=== PATIENT | female | born 1945 | race Two or more races ===

== ENCOUNTER 2019-02-21 12:15 | Outpatient (CLI) | payer MEDICARE | END 2019-02-21 23:59 | disposition home or self-care (01) | LOC: WOU 12:15 | PROVIDERS: ATTEND Podiatrist Foot & Ankle Surgery | DX: L91.0 Hypertrophic scar (principal); C90.01 Multiple myeloma in remission; D69.2 Other nonthrombocytopenic purpura | CPT/HCPCS: G0463 ==

== ENCOUNTER 2020-01-17 04:25 | Inpatient (IN) | payer MEDICARE ==
[~2020-01-17] VITALS: Ht 149.9 cm; Wt 65.8 kg
--- NOTE | 2020-01-17 04:38 | NUR ---
JEFF FROM HOME C/O SOB x6 HOURS, TO ER BED 8, PT CURRENTLY ON 6 L O2 SATING ABOVE 90% AWAITING MD MARQUIS
--- NOTE | 2020-01-17 04:50 | NUR ---
RT AT BEDSIDE FOR ABG
[2020-01-17] MEDS ORDERED: ENOXAPARIN SODIUM 60 MG/0.6 ML DISP.SYRIN SQ ONE ×2 (05:00→05:02)
--- NOTE | 2020-01-17 05:03 | NUR ---
CALLED LAB FOR COVID SWAB
--- NOTE | 2020-01-17 05:20 | NUR ---
BLOOD COLLECTED AND SENT TO LAB
[2020-01-17 05:22] LABS: ABG BASE EXCESS 1.6 mmol/L; ABG OXYGEN SATURATION 95.1 % (92.0-98.5); ABG PCO2 35.2 mmHg (35.0-45.0); ABG PH 7.469 (7.350-7.450); ABG PO2 81.5 mmHg (75.0-100.0); AaDO2 134.4 mmHg; MetHb 0.4 % (0.0-1.5); O2Hb 93.8 % (94.0-97.0); SITE, ABG Left Radial; VENT MODE, BG Nasal Cannula
--- NOTE | 2020-01-17 05:30 | NUR ---
COVID SWAB SENT TO LAB
--- NOTE | 2020-01-17 05:30 | NUR ---
INFLUENZA SWAB SENT TO LAB
[2020-01-17 05:32] LABS: BASOPHILS % (AUTO) 0.8 % (0.0-2.0); EOSINOPHILS % (AUTO) 1.5 % (0.0-6.0); HEMATOCRIT 38 % (33-45); HEMOGLOBIN 12.1 g/dL (11.5-14.8); LYMPHOCYTES # (AUTO) 0.7 /CMM (0.8-4.8); LYMPHOCYTES % (AUTO) 12.5 % (20.0-44.0); MEAN CORPUSCULAR HGB CONC 32 g/dl (31.0-36.0); MEAN CORPUSCULAR VOLUME 94 fL (82-100); MONOCYTES # (AUTO) 0.8 /CMM (0.1-1.30); NEUTROPHILS # (AUTO) 3.9 /CMM (1.8-8.9); NEUTROPHILS % (AUTO) 70.2 % (43.0-81.0); PLATELET COUNT (AUTO) 179 /CMM (150-450); RED BLOOD CELL COUNT(AUTO) 4.02 MIL/uL (4.0-5.2); WHITE BLOOD COUNT (AUTO) 5.6 K/uL (4.3-11.0)
--- NOTE | 2020-01-17 05:32 | NUR ---
XRAY AT BEDSIDE
[2020-01-17] MEDS ORDERED: SERT100T PO (05:38)
[2020-01-17] MEDS ORDERED: CYAN1TAB19 PO (05:41)
[2020-01-17] MEDS ORDERED: RIVA10TA PO (05:42)
[2020-01-17 05:44] LABS: CALCIUM, SERUM 9.9 mg/dL (8.5-10.1); CARBON DIOXIDE 29 mmol/L (21-32); CHLORIDE 107 mmol/L (98-107); CREATININE 1.5 mg/dL (0.6-1.3); GLUCOSE 110 mg/dL (74-106); POTASSIUM 4.8 mmol/L (3.5-5.1); SODIUM SERUM 145 mmol/L (136-145); UREA NITROGEN, BLOOD 19 mg/dL (7-18)
[2020-01-17] MEDS ORDERED: METH16TA3 PO (05:45)
[2020-01-17 05:47] LABS: EOSINOPHILS % (MANUAL) 1 % (0-4); LYMPHOCYTES % (MANUAL) 18 % (16-48); MONOCYTES % (MANUAL) 12 % (0-11.0)
[2020-01-17 05:48] LABS: NEUTROPHILS % (MANUAL) 69 (42-76)
[2020-01-17 05:57] LABS: ALANINE AMINOTRANSFERASE 26 U/L (12-78); ALKALINE PHOSPHATASE 80 U/L (46-116); ASPARTATE AMINOTRANSFERASE 24 U/L (15-37); B-TYPE NATRIURETIC PEPTIDE 253 PG/ML (0-125); BILIRUBIN,DIRECT 0.4 mg/dL (0.0-0.2); BILIRUBIN,TOTAL 1.1 mg/dL (0.2-1.0); D-DIMER 1.71 mg/L(FEU (0.17-0.50); TOTAL PROTEIN, SERUM 6.3 g/dL (6.4-8.2)
[2020-01-17 05:58] LABS: C-REACTIVE PROTEIN 6.4 mg/dL (0.0-0.9); CREATINE KINASE, TOTAL 36 U/L (26-192); FERRITIN 288 ng/mL (8-388)
[2020-01-17] MEDS ORDERED: LEVOFLOXACIN 750 MG /D5W 150ML 150 ML IV ONE (05:58)
[2020-01-17] MEDS ORDERED: LEVOFLOXACIN 750 MG /D5W 150ML PIGGYBACK IV ONE (06:00)
--- NOTE | 2020-01-17 07:24 | NUR ---
ASSESSED PT ON BED AWAKE, AAOX4, NOT IN RESPIRATORY DISTRESS, V/S STABLE. KEPT RESTED AND COMFORTABLE, WILL CONTINUE TO MONITOR.
--- NOTE | 2020-01-17 07:34 | NUR ---
REPORT GIVEN TO BELL BACON RN FOR RADHA
--- NOTE | 2020-01-17 08:48 | NUR ---
room [id number] assigned
--- NOTE | 2020-01-17 08:50 | NUR ---
PT IS WHEELED TO [employer] FOR VQ SCAN.
--- NOTE | 2020-01-17 08:50 | NUR ---
PT IS WHEELED TO CT SCAN VIA [facility].
--- NOTE | 2020-01-17 09:00 | NUR ---
REPORT GIVEN TO CHARLIE HUTSON FOR RADHA.
[2020-01-17] MEDS ORDERED: Z GUARD REMEDY 2 OZ OINT TP PRN (10:00)
--- NOTE | 2020-01-17 10:00 | NUR ---
RN NOTES RECEIVED PATIENT VIA JULES FROM ED. PT IS AOX4, VERBAL, AND AMBULATORY WITH ASSIST. SHE IS ON 5LOF OXYGEN VIA NC, TOLERATING WELL. SHE HAS MULTIPLE BRUISES ON BLE. ABDOMEN IS SOFT AND NON-DISTENDED. EYES ARE PERRLA, TOUNGE IS MIDLINE, FACIAL MOVEMENT IS SYMMETRICAL. LUNGS SOUND CLEAR BILATERALLY. FOSTER STATUS. WILL CONTINUE TO MONITOR FOR ANY CHANGES.
[2020-01-17] MEDS: CEFTRIAXONE 1 G in IV D5W 50 ML IV SCH (12:31)
[2020-01-17] MEDS: IV NS 0.9% 1,000 ML IV PRN (12:31)
[2020-01-17] MEDS: DOXYCYCLINE 100 MG in IV D5W 100 ML IV SCH ×2 (14:21→20:26)
--- NOTE | 2020-01-17 14:22 | NUR ---
TRANSCRIBING MACHINE MECHANIC VIBRAMYCIN 1200 DOSE ADMINISTERED LATE DUE TO PHARMACY DELAY IN DISPENSING MEDICATION.
--- NOTE | 2020-01-17 19:15 | NUR ---
RN CLOSING NOTES PATIENT IS RESTING ON BED, VS ARE WNL. PATIENT IS A&O X4 WITH NO S/S OF DISTRESS. PATIENT IS VERBAL AND ABLE TO COMMUNICATE. PATIENT DENIES PAIN ON NUMERICAL SCALE. ALL SAFETY MEASURES ARE IN PLACE. BED LOCKED IN LOWEST POSITION. CALL LIGHT WITHIN REACH. WILL ENDORE INCOMINGNURE
[2020-01-17 20:00] VITALS: BP 118/46
--- NOTE | 2020-01-17 20:02 | NUR ---
RN NOTE PT IS ALERT AND ORIENTED X 4. PT WITH NEW ORDER FOR XARELTO 10MG QD AT 5PM. PT IS ASKING FOR A ONE TIME ORDER TO START FOR TONIGHT. PT IS ALSO ASKING FOR ATIVAN FOR MILD AGITATION. PAGED SEBASTIAN STRUCTURAL LAYOUT WORKER ANIMAL TRAINER SUPERVISOR WHO AGREES. NEW ORDER FOR ATIVAN 1MG PO Q6H PRN FOR MILD AGITATION. ORDER NOTED AND CARRIED OUT.
[2020-01-17] MEDS ORDERED: RIVAROXABAN 10 MG TABLET PO SCH (20:30)
[2020-01-17] MEDS ORDERED: RIVAROXABAN 10 MG TABLET PO ONE (20:30)
[2020-01-17] MEDS: LORAZEPAM 1 MG TABLET PO PRN (21:57)
[2020-01-18] VITALS: BP 115/53
[2020-01-18 04:00] VITALS: BP 94/43
[2020-01-18] MEDS: IV NS 0.9% 1,000 ML IV PRN ×2 (04:18→11:57)
[2020-01-18 06:22] LABS: BASOPHILS % (AUTO) 0.2 % (0.0-2.0); EOSINOPHILS % (AUTO) 4.8 % (0.0-6.0); HEMATOCRIT 29 % (33-45); HEMOGLOBIN 9.5 g/dL (11.5-14.8); LYMPHOCYTES # (AUTO) 0.3 /CMM (0.8-4.8); LYMPHOCYTES % (AUTO) 11.9 % (20.0-44.0); MEAN CORPUSCULAR HGB CONC 33 g/dl (31.0-36.0); MEAN CORPUSCULAR VOLUME 93 fL (82-100); MONOCYTES # (AUTO) 0.8 /CMM (0.1-1.30); MONOCYTES % (AUTO) 27.9 % (2.0-12.0); NEUTROPHILS # (AUTO) 1.6 /CMM (1.8-8.9); NEUTROPHILS % (AUTO) 55.2 % (43.0-81.0); PLATELET COUNT (AUTO) 120 /CMM (150-450); RED BLOOD CELL COUNT(AUTO) 3.12 MIL/uL (4.0-5.2); WHITE BLOOD COUNT (AUTO) 2.8 K/uL (4.3-11.0)
--- NOTE | 2020-01-18 06:43 | NUR ---
RN CLOSING NOTE NO ACUTE CHANGES OBSERVED OVERNIGHT. PT SLEEPING IN BED WITHOUT INDICATIONS OF DISTRESS OR DISCOMFORT. ALL NEEDS MET AND ATTENDED TO. WILL ENDORSE TO MORNING RN FOR CONTINUATION OF CARE.
[2020-01-18 06:47] LABS: ALBUMIN 2.5 g/dL (3.4-5.0); BILIRUBIN,TOTAL 0.9 mg/dL (0.2-1.0); CALCIUM, SERUM 8.4 mg/dL (8.5-10.1); CREATININE 1.3 mg/dL (0.6-1.3); MAGNESIUM 1.6 mg/dL (1.8-2.4); POTASSIUM 3.8 mmol/L (3.5-5.1); THYROID STIMULATING HORMONE 1.083 uIU/mL (0.358-3.74); TOTAL PROTEIN, SERUM 5.4 g/dL (6.4-8.2)
--- NOTE | 2020-01-18 07:25 | NUR ---
ELECTROMECHANICAL INSPECTOR OPENING NOTES RECEIVED PT AOX4 IN BED RESTING COMFORTABLY. PATIENT IN NO S/SX OF ACUTE DISTRESS AT THIS TIME. NO SOB NOTED. PATIENT'S BREATHING IS EVEN AND UNLABORED. PATIENT IS ON 5L OF OXYGEN VIA NC, TOLERATING WELL. PATIENT ON CARDIAC MONITORING READING SINUS RHYTHM HR IS @63. NOTED IV SITE ON LEFT WRIST 22G ; PATENT IN INTACT .IVF OF NS INFUSING @75ML/HR. SAFETY MEASURES HAVE BEEN PROVIDED AND IMPLEMENTED. PATIENT BED ALARM IS ON. HEAD OF BED ELEVATED. BED IS LOCKED, IN LOWEST POSITION AND SIDE RAILS UP. CALL LIGHT WITHIN REACH OF THE PATIENT. WILL CONTINUE TO MONITOR AND REASSESS FOR ANY CHANGES.
[2020-01-18 08:00] VITALS: BP 126/60
[2020-01-18 08:23] LABS: BAND % (MANUAL) 1 % (0.0-5.0); EOSINOPHILS % (MANUAL) 4 % (0-4); LYMPHOCYTES % (MANUAL) 12 % (16-48); MONOCYTES % (MANUAL) 23 % (0-11.0); NEUTROPHILS % (MANUAL) 60 (42-76)
[2020-01-18] MEDS: SERTRALINE HCL 50 MG TABLET PO SCH (09:01)
[2020-01-18] MEDS: DOXYCYCLINE 100 MG in IV D5W 100 ML IV SCH ×2 (09:02→20:59)
[2020-01-18] MEDS ORDERED: predniSONE 20 MG TABLET PO SCH (09:30)
--- NOTE | 2020-01-18 09:36 | NUR ---
PER MARQUIS QUINTANA TO DISCONTINUE ISOLATION,NURSING SUP NOTIFIED AWAITS CLEAN RM IN CLEAN UNIT.
--- NOTE | 2020-01-18 09:40 | NUR ---
INFECTION CONTROL JERO NOTIFIED.
--- NOTE | 2020-01-18 09:54 | NUR ---
RECEIVED CALL FROM DR. CHILDERS PATIENT POSITIVE DVT LEFT LOWER EXTREMITIES.MARQUIS RIBEIRO NOTIFIED PRIMARY RN MADE AWARE.
[2020-01-18] MEDS: predniSONE 20 MG TABLET PO SCH (10:25)
[2020-01-18 11:15] VITALS: BP 99/57
--- NOTE | 2020-01-18 11:15 | NUR ---
CHANNEL CEMENTER OUTSOLE MACHINE NOTE PATIENT SAFELY TRANSPORTED TO [facility] ROOM 311. ALL PATIENT NEEDS MET. REMAINED ON OXYGEN 5L VIA NC DURING TRANSFER. ALL SCHEDULED MEDS GIVEN ON TIME. BELONGINGS SENT WITH THE PATIENT. PATIENT SAFETY MAINTAINED. ENDORSED PATIENT TO RANULFO GUERRA FOR CONTINUITY OF CARE.
[2020-01-18 11:50] LABS: CREATININE, URINE 58.3 MG/DL (30.0-125.0); URINE TOTAL PROTEIN 10.9 mg/dL (0-11.9)
[2020-01-18 11:58] LABS: APPEARANCE,URINE CLEAR (CLEAR); BILIRUBIN,URINE NEGATIVE (NEGATIVE); BLOOD, URINE TRACE Ery/uL (NEGATIVE); COLOR,URINE YELLOW (YELLOW); KETONES,URINE NEGATIVE (NEGATIVE); LEUKOCYTE ESTERASE ,URINE NEGATIVE (NEGATIVE); NITRITE, URINE NEGATIVE (NEGATIVE); PH,URINE 5.5 (5.0-8.0); PROTEIN,URINE NEGATIVE (NEGATIVE); UGLUCOSE NEGATIVE (NEGATIVE); UROBILINOGEN,URINE 0.2 EU/dL (0.2)
[2020-01-18 11:59] LABS: WBC,URINE 0-2 /HPF (0-3)
[2020-01-18 12:00] LABS: BACTERIA,URINE Few /HPF (None Seen)
[2020-01-18] MEDS: CEFTRIAXONE 1 G in IV D5W 50 ML IV SCH (12:38)
[2020-01-18 13:27] LABS: EOSINOPHIL,URINE None Seen
[2020-01-18] MEDS: Magnesium 1GM/D5W 100ML PREMIX 100 ML IV SCH ×2 (14:15→15:44)
[2020-01-18 16:00] VITALS: BP 104/60
[2020-01-18] MEDS: RIVAROXABAN 15 MG TABLET PO SCH (17:00)
[2020-01-18] MEDS ORDERED: RIVAROXABAN 10 MG TABLET PO SCH (17:00)
--- NOTE | 2020-01-18 18:00 | NUR ---
mg replacement given.
--- NOTE | 2020-01-18 18:30 | NUR ---
palliative care nurse practitioner light freq.up to commode several times. becomes very sob when up to bsc whether o2 on or not.
--- NOTE | 2020-01-18 19:30 | NUR ---
MS RN NOTES ON BED WATCHING TV PROGRAM,ALERT,ORIENTED X4,BREATHING NON LABORED,O2 IN USED AT 5L/NC TO KEEP O2 SAT ABOVE 90%.IVF NS AT 75ML/HR RATE INFUSING VIA IV PUMP,SITE PATENT.BED REST EMPHASIZED FOR POSITIVE DVT ON LEFT LEG.NO NEW NEEDS AT THIS TIME.CALL LIGHT IN REACH,NEEDS ANTICIPATED.
[2020-01-18 20:00] VITALS: BP 119/61
[2020-01-18] MEDS ORDERED: ZOLPIDEM TARTRATE 5 MG TABLET PO PRN (20:30)
[2020-01-18] MEDS ORDERED: MAGNESIUM HYDROXIDE 30 ML UDC PO PRN (20:30)
--- NOTE | 2020-01-18 21:00 | NUR ---
MS RN NOTES C/O CONSTIPATION,MEDICATED WITH MILK OF MAGNESIA 30ML PO PER PATIENT REQUEST.
[2020-01-18] MEDS: LORAZEPAM 1 MG TABLET PO PRN (22:31)
--- NOTE | 2020-01-18 22:31 | NUR ---
MS RN NOTES FEELING ANXIOUS,ATIVAN 1MG PO GIVEN ORDERED FOR ANXIETY
[2020-01-19] MEDS: IV NS 0.9% 1,000 ML IV PRN (05:57)
--- NOTE | 2020-01-19 06:02 | NUR ---
MS RN NOTES IV SITE LEAKING,REFUSED TO HAVE NEW IV LINE THIS TIME.SHE WANTS TO SLEEP MORE.NEW IV BAG HUNG
--- NOTE | 2020-01-19 06:21 | NUR ---
MS RN NOTES ON BED SLEEPING,OFFERED TO HAVE A NEW SALINE LOCK BUT REFUSED.CALL LIGHT IN REACH,NEEDS ATTENDED.
--- NOTE | 2020-01-19 07:12 | NUR ---
MS RN NOTES RECEIVED PATIENT IN BED ASLEEP, AROUSABLE TO VERBAL AND TACTILE STIMULI. HOB ELEVATED. NO SOB. ON O2 AT 5L/MIN VIA NC CHINO WELL. DENIES ANY C/O PAIN NOR DISCOMFORT AT THIS TIME. LEFT WRIST # 22 INTACT AND PATENT. BED IN LOWEST POSITION, LOCKED. BED ALARM ON. BED SIDERAILS UPX2. CALL LIGHT WITHIN REACH. ABLE TO VERBALIZE NEEDS.
[2020-01-19 08:00] VITALS: BP 110/58
[2020-01-19] MEDS: RIVAROXABAN 15 MG TABLET PO SCH ×2 (09:17→17:03)
[2020-01-19] MEDS: DOXYCYCLINE HYCLATE (100 MG) 100 MG TABLET PO SCH ×2 (09:17→20:47)
[2020-01-19] MEDS: SERTRALINE HCL 50 MG TABLET PO SCH (09:17)
[2020-01-19] MEDS: CEFTRIAXONE 1 G in IV D5W 50 ML IV SCH (12:07)
[2020-01-19 16:00] VITALS: BP 127/54
[2020-01-19 16:50] LABS: BASOPHILS % (AUTO) 0.7 % (0.0-2.0); EOSINOPHILS % (AUTO) 3.7 % (0.0-6.0); HEMATOCRIT 30 % (33-45); HEMOGLOBIN 9.7 g/dL (11.5-14.8); LYMPHOCYTES # (AUTO) 0.5 /CMM (0.8-4.8); LYMPHOCYTES % (AUTO) 10.7 % (20.0-44.0); MEAN CORPUSCULAR HGB CONC 33 g/dl (31.0-36.0); MEAN CORPUSCULAR VOLUME 94 fL (82-100); MONOCYTES # (AUTO) 1.2 /CMM (0.1-1.30); MONOCYTES % (AUTO) 24.2 % (2.0-12.0); NEUTROPHILS # (AUTO) 2.9 /CMM (1.8-8.9); NEUTROPHILS % (AUTO) 60.7 % (43.0-81.0); PLATELET COUNT (AUTO) 142 /CMM (150-450); RED BLOOD CELL COUNT(AUTO) 3.18 MIL/uL (4.0-5.2); WHITE BLOOD COUNT (AUTO) 4.8 K/uL (4.3-11.0)
[2020-01-19 17:03] LABS: CALCIUM, SERUM 7.6 mg/dL (8.5-10.1); CREATININE 1.2 mg/dL (0.6-1.3); PHOSPHORUS 2.1 mg/dL (2.5-4.9); POTASSIUM 3.4 mmol/L (3.5-5.1)
[2020-01-19 18:32] LABS: BAND % (MANUAL) 2 % (0.0-5.0); EOSINOPHILS % (MANUAL) 9 % (0-4); LYMPHOCYTES % (MANUAL) 14 % (16-48); MONOCYTES % (MANUAL) 13 % (0-11.0); NEUTROPHILS % (MANUAL) 60 (42-76); REACTIVE LYMPHOCYTES 2 % (0-0)
--- NOTE | 2020-01-19 19:00 | NUR ---
MS RN NOTES PATIENT RESTING COMFORTABLY IN BED. HOB ELEVATED. NO S/S OF RESPIRATORY DISTRESS. ON O2 AT 5L/MIN VIA NC CHINO WELL. PATIENT C/O SOB DURING PHYSICAL ACTIVITY ONLY. DENIES ANY C/O PAIN NOR DISCOMFORT AT THIS TIME. LEFT FOREARM # 22 INTACT AND PATENT INFUSING NS @ 75ML/HR CHINO WELL. BED IN LOWEST POSITION, LOCKED. BED ALARM ON. CALL LIGHT WITHIN REACH. IN NO APPARENT DISTRESS.
--- NOTE | 2020-01-19 19:30 | NUR ---
MS RN NOTES RECEIVED ON BED A/O X4,BREATHING NON LABORED,O2 IN USED AT 5L/NC IN USED.IVF IN PROGRESS AT 75ML/HR RATE ON LEFT FORE ARM VIA IV PUMP,SITE PATENT.DENIES DISCOMFORTS AT THE MOMENT.CALL LIGHT IN REACH,NEEDS ANTICIPATED.
[2020-01-19 20:00] VITALS: BP 125/54
[2020-01-19] MEDS: ACETAMINOPHEN 325 MG TABLET PO PRN (20:47)
--- NOTE | 2020-01-19 20:47 | NUR ---
MS RN NOTES INCREASED TEMP 0F 100.2,TYLENOL 650MG PO GIVEN.
[2020-01-19] MEDS: ONDANSETRON HCL/PF 4 MG/2 ML VIAL IVP PRN (21:56)
--- NOTE | 2020-01-19 21:56 | NUR ---
MS RN NOTES C/O NAUSEA,ZOFRAN 4MG IV GIVEN
[2020-01-19] MEDS: LORAZEPAM 1 MG TABLET PO PRN (22:15)
--- NOTE | 2020-01-19 22:15 | NUR ---
MS RN NOTES FEELING ANXIOUS,ATIVAN 1MG PO GIVEN PER PATIENT REQUEST.
--- NOTE | 2020-01-20 01:00 | NUR ---
MS RN NOTES IV PUMP MAKING SOUNDS,IV OFF THIS TIME PER PATIENT REQUEST,SHE WANTS TO SLEEP.
--- NOTE | 2020-01-20 05:00 | NUR ---
MS RN NOTES LATEST TEMP 98.4 THIS TIME.
--- NOTE | 2020-01-20 06:06 | NUR ---
MS RN NOTES ON BED SLEPT WELL WITH ATIVAN PO,AFEBRILE 98.4.NO EPISODE OF SON NOTED,O2 IN USED TO KEEP O2 SAT ABOVE 90%.NO NEW CONCERN PRESENTD.CALL LIGHT IN REACH,NEEDS ATTENDED.
[2020-01-20 06:26] LABS: BASOPHILS % (AUTO) 0.5 % (0.0-2.0); EOSINOPHILS % (AUTO) 4.2 % (0.0-6.0); HEMATOCRIT 30 % (33-45); HEMOGLOBIN 9.5 g/dL (11.5-14.8); LYMPHOCYTES # (AUTO) 0.5 /CMM (0.8-4.8); LYMPHOCYTES % (AUTO) 11.9 % (20.0-44.0); MEAN CORPUSCULAR HGB CONC 32 g/dl (31.0-36.0); MEAN CORPUSCULAR VOLUME 96 fL (82-100); MONOCYTES # (AUTO) 1.1 /CMM (0.1-1.30); MONOCYTES % (AUTO) 28.8 % (2.0-12.0); NEUTROPHILS # (AUTO) 2.1 /CMM (1.8-8.9); NEUTROPHILS % (AUTO) 54.6 % (43.0-81.0); PLATELET COUNT (AUTO) 125 /CMM (150-450); RED BLOOD CELL COUNT(AUTO) 3.14 MIL/uL (4.0-5.2); WHITE BLOOD COUNT (AUTO) 3.9 K/uL (4.3-11.0)
[2020-01-20 06:40] LABS: CALCIUM, SERUM 7.8 mg/dL (8.5-10.1); CREATININE 1.1 mg/dL (0.6-1.3); PHOSPHORUS 2.2 mg/dL (2.5-4.9); POTASSIUM 3.6 mmol/L (3.5-5.1)
[2020-01-20 07:09] LABS: EOSINOPHILS % (MANUAL) 1 % (0-4); LYMPHOCYTES % (MANUAL) 12 % (16-48); MONOCYTES % (MANUAL) 25 % (0-11.0); NEUTROPHILS % (MANUAL) 62 (42-76)
[2020-01-20 08:00] VITALS: BP 94/52
[2020-01-20] MEDS: SERTRALINE HCL 50 MG TABLET PO SCH (09:20)
[2020-01-20] MEDS: predniSONE 20 MG TABLET PO SCH (09:20)
[2020-01-20] MEDS: DOXYCYCLINE HYCLATE (100 MG) 100 MG TABLET PO SCH ×2 (09:20→21:06)
[2020-01-20] MEDS: RIVAROXABAN 15 MG TABLET PO SCH ×2 (09:21→16:20)
[2020-01-20] MEDS ORDERED: K PHOS NEUTRAL 250 MG TABLET PO ONE (11:00)
[2020-01-20] MEDS: CEFTRIAXONE 1 G in IV D5W 50 ML IV SCH (11:31)
[2020-01-20] MEDS: ONDANSETRON HCL/PF 4 MG/2 ML VIAL IVP PRN (11:32)
[2020-01-20] MEDS: IV NS 0.9% 1,000 ML IV PRN (11:33)
[2020-01-20 16:00] VITALS: BP 110/53
[2020-01-20] MEDS: LORAZEPAM 1 MG TABLET PO PRN ×2 (16:15→22:51)
--- NOTE | 2020-01-20 18:26 | NUR ---
END OF SHIFT SUMMARY NOTES PT IS A/OX4, AFEBRILE. NON-MONITORED, VSS. ON O2 @5L/MIN VIA NC TO KEEP O2 >92%. RESPIRATIONS ARE EVEN AND UNLABORED, NOT IN ANY ACUTE DISTRESS NOTED. PT DENIES ANY PAIN, NO C/O CHEST PAIN. NEW PIV TO RFA G22 INTACT, NO INFITLRATION NOTED. DRESSING KEPT CLEAN AND DRY. ON IV ABX. +FLATUS, X1BM DURING SHIFT. TOLERATING PO W/ NO N/V. SKIN CDI, NOTED WITH MULTIPLE DISCOLORATION. ALL NEEDS MET AND RENDERED. SAFETY MEASURES ARE IN PLACE. CALL LIGHT IS LEFT WITHIN REACH. WILL MONITOR AND CONTINUE POC.
--- NOTE | 2020-01-20 19:15 | NUR ---
RN NOTES: RECEIVED AWAKE ON BED, CONVERSANT, A/OX 4, ON O2 AT 4-5L/MIN VIA NC, SHE IS TAKING IT OFF IN BETWEEN, INSTRUCTED DURING ENDORSEMENT THAT WE NEED TO KEEP HER OXYGEN ON AND SHE AGREED, IVF IS TEMPORARILY OFF UPON ENDORSEMENT PER PATIENT REQUEST.IV CANNULA ON THE RH G#22 SL.NON LABORED BREATHING, NO WHEEZING, NO STERNAL OR ABDOMINAL RETRACTION NOTED,NO SOB. KEPT ON CLOSE WATCH.
[2020-01-20 20:00] VITALS: BP 119/52
--- NOTE | 2020-01-20 22:52 | NUR ---
RN NOTES: IVF WAS DISCONTINUE PER ORDER, NOT RESUMED ANYMORE, MARCE DOING ROUNDS SHE VERBALIZED SHE FEEL ANXIOUS AND SHE CANNOT SLEEP WELL, SHE WANTS HER ATIVAN, OFFERED HER AMBIEN FOR SLEEP BUT SHE STRONGLY REFUSED,'I DONT LIKE AMBIEN, I WANT MY ATIVAN ITS MORE THAN 6 HOURS NOW IT ALRIGHT FOR ME TO GET IT AGAIN', GIVEN PER PATIENT REQUEST, NO SIGN OF SOB OR RESPIRATORY DISCOMFORT, EDUCATE TO KEEP HER OXYGEN ON SHE IS REMOVING IT IN BETWEEN.
--- NOTE | 2020-01-20 23:14 | NUR ---
RN NOTES: ABLE TO SLEEP AND REST AFTER PRN MEDICATION GIVEN, KEPT ON CLOSE VISUAL CHECK, NO SIGN OF RESPIRATORY DISCOMFORT,KEPT CALL LIGHT WITHIN EASY REACH, FALL,SAFETY AND ASPIRATION PRECAUTION OBSERVED, BED LOW AND LOCKED.
--- NOTE | 2020-01-21 02:51 | NUR ---
RN NOTES: ABLE TO REST AND SLEEP, REMAINS AFEBRILE, NO SIGN OF RESPIRATORY DISCOMFORT, NO COUGHING,NO VOMITING, KEPT ON CLOSE WATCH.
[2020-01-21 06:41] LABS: BASOPHILS % (AUTO) 0.4 % (0.0-2.0); EOSINOPHILS % (AUTO) 3.6 % (0.0-6.0); HEMATOCRIT 26 % (33-45); HEMOGLOBIN 8.5 g/dL (11.5-14.8); LYMPHOCYTES # (AUTO) 0.5 /CMM (0.8-4.8); LYMPHOCYTES % (AUTO) 13.2 % (20.0-44.0); MEAN CORPUSCULAR HGB CONC 32 g/dl (31.0-36.0); MEAN CORPUSCULAR VOLUME 93 fL (82-100); MONOCYTES % (AUTO) 28.8 % (2.0-12.0); PLATELET COUNT (AUTO) 116 /CMM (150-450); RED BLOOD CELL COUNT(AUTO) 2.85 MIL/uL (4.0-5.2); WHITE BLOOD COUNT (AUTO) 3.6 K/uL (4.3-11.0)
--- NOTE | 2020-01-21 06:50 | NUR ---
RN NOTES: MORNING CARE DONE, AGREE TO CHANGE HER BRIEF,SHE HAS SMALL AMOUNT OF BM, NO DIARRHEA, NO ABDOMINAL DISCOMFORT, NOT ON RESPIRATORY DISTRESS, NOTED SLIGHT SOB UPON EXERTION LIKE REPOSITIONING AND TURNING UNTO SIDES DURING CLEANING, SHE LOOKS VERY ALERT AND NO PAIN AND DISCOMFORT NOTED, VERY COOPERATIVE.REMAINS AFEBRILE, FOR CXR AND BLOOD TEST THIS MORNING,HAD 2X URINE AND 1XBM,TO F/U RESULT FOR MYCOPLASMA AND LEGIONELLA TITERS. ENDORSED FOR CONTINUITY OF CARE.
[2020-01-21 06:51] LABS: PHOSPHORUS 2.4 mg/dL (2.5-4.9); POTASSIUM 3.6 mmol/L (3.5-5.1)
--- NOTE | 2020-01-21 07:31 | NUR ---
rn opening notes Patient received on 5 L nasal cannula, no sob noted, a/o x3-4 at this time. Patient denies pain at this time. RFA 22 present. Maybe dc planning today. Bed at the lowest setting, call light within reach, side rails up x2.
[2020-01-21 08:08] VITALS: BP 124/61
[2020-01-21 08:32] LABS: EOSINOPHILS % (MANUAL) 2 % (0-4); LYMPHOCYTES % (MANUAL) 14 % (16-48); MONOCYTES % (MANUAL) 21 % (0-11.0); NEUTROPHILS % (MANUAL) 63 (42-76)
[2020-01-21] MEDS: RIVAROXABAN 15 MG TABLET PO SCH ×2 (08:36→16:16)
[2020-01-21] MEDS: SERTRALINE HCL 50 MG TABLET PO SCH (08:36)
[2020-01-21] MEDS: DOXYCYCLINE HYCLATE (100 MG) 100 MG TABLET PO SCH ×2 (08:36→20:57)
[2020-01-21] MEDS: NEUTRA PHOS 1 POWD.PACKET PO SCH ×2 (09:10→16:16)
[2020-01-21] MEDS: ACETAMINOPHEN 325 MG TABLET PO PRN ×3 (09:49→20:58)
[2020-01-21] MEDS: CEFTRIAXONE 1 G in IV D5W 50 ML IV SCH (12:04)
[2020-01-21] MEDS: DIPHENOXYLATE HCL/ATROP SULF 1 UDTAB TABLET PO PRN ×2 (12:42→18:31)
[2020-01-21] MEDS: ONDANSETRON HCL/PF 4 MG/2 ML VIAL IVP PRN ×2 (14:33→21:36)
[2020-01-21 15:55] VITALS: BP 104/55
--- NOTE | 2020-01-21 18:02 | NUR ---
rn closing notes Patient remains on 3L nasal cannula, no sob noted, patient denies pain at this time. Bruises all over the body, thin skin. regular diet, R FA 22, awaiting for mycoplasma and legionnaire titers. Bed at the lowest setting, call light within reach, side rails up x2.
--- NOTE | 2020-01-21 19:07 | NUR ---
MS RN NOTES PATIENT RECEIVED IN BED RESTING, WATCHING TV. ALERT AND ORIENTED X 4. PATIENT ON NASAL CANNULA, 3L, WITH NO SIGNS OF SOB, NO SIGNS OF RESPIRATORY DISTRESS AT THIS TIME WITH EVEN NON-LABORED BREATHING. PATIENT IV ACCESS INTACT AND PATENT. DENIES PAIN AND DISCOMFORT AT THIS TIME. PROVIDED COMFORT MEASURES. SAFETY PRECAUTIONS IN PLACE WITH BED LOCKED, BILATERAL SIDE RAILS UP, BED IN THE LOWEST POSITION, AND CALL LIGHT WITHIN EASY REACH OF THE PATIENT. WILL CONTINUE TO MONITOR PATIENT.
[2020-01-21 20:00] VITALS: BP 115/68
--- NOTE | 2020-01-21 20:58 | NUR ---
MS RN NOTES PATIENT STATES 6/10 NECK PAIN AND ASKED FOR TYLENOL, AND STATED BY PATIENT "IT HELPS RELIEVE THE PAIN". ADMINISTERED PRN TYLENOL PO 650mg. WILL CONTINUE TO MONITOR PATIENT.
[2020-01-21] MEDS: LORAZEPAM 1 MG TABLET PO PRN (22:30)
--- NOTE | 2020-01-21 22:30 | NUR ---
MS RN NOTES PATIENT STATES BEING ANXIOUS AND INSISTED ON TAKING ATIVAN. VITAL SIGNS, BLOOD PRESSURE 117/59, HEART RATE 64, RESPIRATORY RATE 18. ADMINISTERED PRN ATIVAN PO 1 mg. WILL CONTINUE TO MONITOR PATIENT.
[2020-01-22 05:46] LABS: BASOPHILS % (AUTO) 1.2 % (0.0-2.0); EOSINOPHILS % (AUTO) 7.2 % (0.0-6.0); HEMATOCRIT 26 % (33-45); HEMOGLOBIN 8.6 g/dL (11.5-14.8); LYMPHOCYTES # (AUTO) 0.4 /CMM (0.8-4.8); LYMPHOCYTES % (AUTO) 12.9 % (20.0-44.0); MEAN CORPUSCULAR HGB CONC 32 g/dl (31.0-36.0); MEAN CORPUSCULAR VOLUME 94 fL (82-100); MONOCYTES % (AUTO) 28.6 % (2.0-12.0); NEUTROPHILS # (AUTO) 1.7 /CMM (1.8-8.9); NEUTROPHILS % (AUTO) 50.1 % (43.0-81.0); PLATELET COUNT (AUTO) 130 /CMM (150-450); RED BLOOD CELL COUNT(AUTO) 2.82 MIL/uL (4.0-5.2); WHITE BLOOD COUNT (AUTO) 3.4 K/uL (4.3-11.0)
--- NOTE | 2020-01-22 06:30 | NUR ---
MS RN NOTES PATIENT IN BED SLEEPING EASILY AWAKEN, ON NASAL CANNULA, 3L, WITH NO SIGNS OF SOB PRESENT, NO SIGNS OF RESPIRATORY DISTRESS AND WITH EVEN NON-LABORED BREATHING. PATIENT KEPT CLEAN AND DRY, IV ACCESS INTACT AND PATENT. MET ALL OF PATIENT'S NEEDS. PATIENT DENIES ANY PAIN OR DISCOMFORT AT THIS TIME. SAFETY PRECAUTIONS IN PLACE WITH BED IN THE LOWEST POSITION, BED LOCKED, BILATERAL SIDE RAILS UP, AND CALL LIGHT WITHIN EASY REACH OF PATIENT. WILL ENDORSE PLAN OF CARE TO DAYSHIFT NURSE.
[2020-01-22 06:58] LABS: BAND % (MANUAL) 2 % (0.0-5.0); EOSINOPHILS % (MANUAL) 7 % (0-4); LYMPHOCYTES % (MANUAL) 12 % (16-48); MONOCYTES % (MANUAL) 23 % (0-11.0); NEUTROPHILS % (MANUAL) 56 (42-76)
[2020-01-22 06:59] LABS: CALCIUM, SERUM 7.3 mg/dL (8.5-10.1); CREATININE 1.1 mg/dL (0.6-1.3); MAGNESIUM 1.8 mg/dL (1.8-2.4); PHOSPHORUS 2.3 mg/dL (2.5-4.9); POTASSIUM 3.9 mmol/L (3.5-5.1)
[2020-01-22 08:00] VITALS: BP 113/46
--- NOTE | 2020-01-22 08:00 | NUR ---
RN NOTES RECEIVED PATIENT IN THE BED A/O X3, ON O2-3L, NO ACUTE RESPIRATORY DISTRESS, PATIENT HAS CRACKLES IN THE LUNGS, KEEP HOB ELEVATES, IV ACCESS ON RIGHT FA INTACT. PATIENT TURN AND REPOSTION SELF IN THE BED, REFUSED BREAKFAST, BECAUSE OF DOES NOT LIKED, ORDERED FOOD FROM [facility]ITCH[facility], DINNER ROL, AND JELLY. PATIENT ABLE TO USE BEDSIDE COMMODE, FALL PRECAUTION MAINTAINED. CALL LIGHT WITHIN TO REACH, CONTINUED MONITORING.
[2020-01-22] MEDS: DOXYCYCLINE HYCLATE (100 MG) 100 MG TABLET PO SCH ×2 (08:36→21:25)
[2020-01-22] MEDS: PANTOPRAZOLE 40 MG TABLET.DR PO SCH (08:36)
[2020-01-22] MEDS: ACETAMINOPHEN 325 MG TABLET PO PRN ×2 (08:36→17:53)
[2020-01-22] MEDS: SERTRALINE HCL 50 MG TABLET PO SCH (08:36)
--- NOTE | 2020-01-22 08:36 | NUR ---
rn notes administered Tylenol 650 mg po prn for neck pain 03/16 per patient request, also offered hot applicant.
[2020-01-22] MEDS: RIVAROXABAN 15 MG TABLET PO SCH ×2 (08:40→17:16)
[2020-01-22] MEDS: ONDANSETRON HCL/PF 4 MG/2 ML VIAL IVP PRN ×3 (08:46→21:42)
--- NOTE | 2020-01-22 08:46 | NUR ---
rn notes administered Zofran 4 mg/ml iv push for nausea.
[2020-01-22] MEDS: NEUTRA PHOS 1 POWD.PACKET PO SCH ×2 (10:27→17:16)
[2020-01-22 11:58] LABS: ABG BASE EXCESS -0.2 mmol/L; ABG OXYGEN SATURATION 92.7 % (92.0-98.5); ABG PCO2 34.5 mmHg (35.0-45.0); ABG PH 7.451 (7.350-7.450); ABG PO2 65.2 mmHg (75.0-100.0); AaDO2 43.2 mmHg; COHb 0.9 % (0.5-1.5); MetHb 0.3 % (0.0-1.5); O2Hb 91.6 % (94.0-97.0); SITE, ABG Left Radial; VENT MODE, BG Room Air
[2020-01-22] MEDS: DIPHENOXYLATE HCL/ATROP SULF 1 UDTAB TABLET PO PRN (13:13)
--- NOTE | 2020-01-22 13:13 | NUR ---
RN NOTES ADMINISTERED LOMOTIL ONE TAB FOR LOOSE STOLE PER PATIENT REQUEST.
[2020-01-22] MEDS: CEFTRIAXONE 1 G in IV D5W 50 ML IV SCH (13:14)
--- NOTE | 2020-01-22 15:35 | NUR ---
RN NOTES ADMINISTERED ZOFRAN 5 MG/ML IV PUSH FOR NAUSEA.
[2020-01-22 16:00] VITALS: BP_SYST 108; BP_DIAS 46; BP_DIAS 50
--- NOTE | 2020-01-22 17:20 | NUR ---
RN NOTES PATIENT REFUSED DINNER BECAUSE OF DOES NOT LIKED IT. REFUSED TO CALL KITCH[facility], PATIENT STATE "I AM NOT HUNGRY ALSO, I AM GOING HOME TOMORROW. ADMINISTERED SCHEDULED MEDICATION, V/S WNL. CONTINUED MONITORING.
--- NOTE | 2020-01-22 17:53 | NUR ---
RN NOTES ADMINISTERED TYLENOL 650 MG PO PRN FOR LEFT SIDE NECK, AND HEADACHE PER PATIENT REQUEST.
--- NOTE | 2020-01-22 18:30 | NUR ---
RN NOTES MEDICATION WERE ADMINISTERED FOR PAIN EFFECTIVE, PATIENT LYING IN THE BED, CALL LIGHT WITHIN TO REACH, O2-2LNC. ENDORSED ONCOMING NURSE FOLLOW PLAN OF CARE.
--- NOTE | 2020-01-22 19:18 | NUR ---
MS RN NOTES PATIENT RECEIVED IN BED, LAYING COMFORTABLY, WATCHING TV. ALERT AND ORIENTED X 3-4. PATIENT ON NASAL CANNULA 2L, WITH NO SIGNS OF RESPIRATORY DISTRESS, WITH EVEN NON-LABORED BREATHING, AND NO SIGNS OF SOB AT THIS TIME. PATIENT SKIN WARM AND DRY TO TOUCH. IV ACCESS INTACT AND PATENT. PROVIDED COMFORT MEASURES AT THIS TIME. SAFETY PRECAUTIONS IN PLACE WITH BED LOCKED, BED IN THE LOWEST POSITION, BILATERAL SIDE RAILS UP, AND CALL LIGHT WITHIN EASY REACH OF THE PATIENT. WILL CONTINUE TO MONITOR PATIENT.
[2020-01-22 20:00] VITALS: BP 110/65
--- NOTE | 2020-01-22 21:42 | NUR ---
MS RN NOTES PATIENT STATES, "I FEEL NAUSEOUS." PATIENT ASKED FOR MEDICATION, ADMINISTERED PRN 4mg IV OF ZOFRAN. WILL CONTINUE TO MONITOR PATIENT.
[2020-01-22] MEDS: LORAZEPAM 1 MG TABLET PO PRN (22:15)
--- NOTE | 2020-01-22 22:15 | NUR ---
MS RN NOTES PATIENT REQUESTED ATIVAN. VITAL SIGNS ARE BLOOD PRESSURE 131/64 HEART RATE 60 RESPIRATORY RATE 20. ADMINISTERED PRN ATIVAN, WILL CONTINUE TO MONITOR PATIENT.
[2020-01-22 22:25] VITALS: BP 110/65
--- NOTE | 2020-01-23 06:30 | NUR ---
MS RN NOTES PATIENT IN BED SLEEPING EASILY AWAKEN BY NAME AND LIGHT TOUCH. ON NASAL CANNULA, 2L, WITH NO SIGNS OF SOB PRESENT, NO SIGNS OF RESPIRATORY DISTRESS AND WITH EVEN NON-LABORED BREATHING. PATIENT KEPT CLEAN AND DRY, IV ACCESS INTACT AND PATENT. MET ALL OF PATIENT'S NEEDS. PATIENT DENIES ANY PAIN OR DISCOMFORT AT THIS TIME. SAFETY PRECAUTIONS IN PLACE WITH BED IN THE LOWEST POSITION, BED LOCKED, BILATERAL SIDE RAILS UP, AND CALL LIGHT WITHIN EASY REACH OF PATIENT. WILL ENDORSE PLAN OF CARE TO DAYSHIFT NURSE.
[2020-01-23] MEDS: PANTOPRAZOLE 40 MG TABLET.DR PO SCH (08:18)
[2020-01-23] MEDS: DOXYCYCLINE HYCLATE (100 MG) 100 MG TABLET PO SCH (09:23)
[2020-01-23] MEDS: ACETAMINOPHEN 325 MG TABLET PO PRN (09:23)
[2020-01-23] MEDS: predniSONE 20 MG TABLET PO SCH (09:23)
[2020-01-23] MEDS: SERTRALINE HCL 50 MG TABLET PO SCH (09:23)
[2020-01-23 09:24] VITALS: BP 105/56
[2020-01-23] MEDS: RIVAROXABAN 15 MG TABLET PO SCH (09:24)
[2020-01-23] MEDS: CEFTRIAXONE 1 G in IV D5W 50 ML IV SCH (12:42)
[2020-01-23] MEDS ORDERED: RIVA10TA PO (14:16)
[2020-01-23 16:30] VITALS: BP 116/67
--- NOTE | 2020-01-23 16:46 | NUR ---
RN CLOSING NOTES PATIENT DISCHARGED HOME. DISCHARGE PAPERWORK COMPLETED, PICTURES TAKEN TONIGHT AND ARE ALREADY IN THE CHART, DISCHARGE INSTRUCTIONS PROVIDED TO THE PATIENT AND SIGNED BY THE PATIENT. ALL PATIENT NEEDS WERE MET. ALL SCHEDULED MEDICATIONS GIVEN ON TIME. IV LINE REMOVED, PATIENT WHEELED OUT OF THE HOSPITAL BY TIA BLACKMON. PATIENT SAFETY WAS MAINTAINED.
[2020-01-23 21:06] LABS: *MYCOPLASMA PNEUMONIAE IgG 335 U/mL (0-99)
[2020-01-24 00:10] LABS: *MYCOPLASMA PNEUMONIAE IgM <770 U/mL (0-769)
== END 2020-01-23 16:52 | disposition home or self-care (01) | DRG 193 ==
LOC: ER 04:27 → TELE-TD 08:53 → MEDSG1 01-18 07:02 → MED 01-18 11:12
PROVIDERS: ADMIT Nurse Practitioner Acute Care; ATTEND Nurse Practitioner Acute Care
DX: J15.9 Unspecified bacterial pneumonia (principal); N17.0 Acute kidney failure with tubular necrosis; J96.01 Acute respiratory failure with hypoxia; E46 Unspecified protein-calorie malnutrition; C90.00 Multiple myeloma not having achieved remission; E87.2 Acidosis; E87.0 Hyperosmolality and hypernatremia; M48.54XA Collapsed vertebra, not elsewhere classified, thoracic region, initial encounter for fracture; I82.5Z2 Chronic embolism and thrombosis of unspecified deep veins of left distal lower extremity; N18.9 Chronic kidney disease, unspecified; Z79.01 Long term (current) use of anticoagulants; Z91.041 Radiographic dye allergy status; Z88.0 Allergy status to penicillin; Z88.8 Allergy status to other drugs, medicaments and biological substances; F32.9 Major depressive disorder, single episode, unspecified; Z79.899 Other long term (current) drug therapy; Z79.52 Long term (current) use of systemic steroids; E83.42 Hypomagnesemia; E88.09 Other disorders of plasma-protein metabolism, not elsewhere classified; E86.9 Volume depletion, unspecified; D72.819 Decreased white blood cell count, unspecified; J43.9 Emphysema, unspecified; D69.6 Thrombocytopenia, unspecified; D64.9 Anemia, unspecified; D72.821 Monocytosis (symptomatic); K80.20 Calculus of gallbladder without cholecystitis without obstruction; M85.80 Other specified disorders of bone density and structure, unspecified site
CPT/HCPCS: 36415; 36600; 71045-TC; 71250-TC; 78580; 80048-TC; 80053-TC; 80061-TC; 80076-TC; 81000-TC; 82550-TC; 82570-TC; 82728-TC; 82803-TC; 83540-TC; 83605-TC; 83615-TC; 83735-TC; 83880; 84100-TC; 84155-TC; 84300-TC; 84443-TC; 84484-TC; 85025-TC; 85045-TC; 85378-TC; 85385-TC; 85730-TC; 86140-TC; 86713; 86738; 87040-TC; 87081-TC; 87449; 93307-TC; 93970-TC; 94799-TC; 97116-TC; 97530-TC; A9540; G0378; J0696; J1650; J1956; J2405; J3475; J3490; J7030; J7060; J7120